=== PATIENT | male | born 2000 | race Caucasian/White ===

== ENCOUNTER 2021-07-23 12:01 | Emergency (ER) | payer MEDICAID ==
[~2021-07-23] VITALS: Ht 180.3 cm; Wt 55.0 kg
[2021-07-23] MEDS ORDERED: KETOROLAC 60MG/2ML VIAL IM ONE (12:15)
[2021-07-23] MEDS ORDERED: METHOCARBAMOL 500MG TABLET PO ONE (12:15)
[2021-07-23] MEDS ORDERED: METH-773 MT ×3 (14:43→14:45)
[2021-07-23] MEDS ORDERED: LIDO1ADH5 TP ×3 (14:43→14:45)
[2021-07-23] MEDS ORDERED: NAPR-681 MT ×3 (14:43→14:45)
[2021-07-23 14:46] VITALS: BP 111/67
== END 2021-07-23 14:46 | disposition home or self-care (01) ==
LOC: ER 12:01
DX: S29.012A Strain of muscle and tendon of back wall of thorax, initial encounter (principal); X58.XXXA Exposure to other specified factors, initial encounter; Y93.89 Activity, other specified; Y92.89 Other specified places as the place of occurrence of the external cause; Y99.8 Other external cause status
CPT/HCPCS: 99283